=== PATIENT | male | born 1985 | race Hispanic/Latino ===

== ENCOUNTER 2018-09-22 09:52 | Emergency (ER) | payer OTHER ==
[2018-09-22 10:28] LABS: #Basophils 0.2 thou/uL (0.0-0.2); #Eosinphils 0.5 thou/uL (0.0-0.7); #Lymphocytes 2.5 thou/uL (1.20-3.40); #Monocytes 0.7 thou/uL (0.11-0.59); #Neutrophils 5.4 thou/uL (1.40-6.50); %Basophils 1.6 % (0.0-1.0); %Eosinophils 5.3 % (0.0-10.0); %Lymphocytes 27.4 % (21.0-51.0); %Monocytes 7.9 % (0.0-10.0); %Neutrophils 57.7 % (42.0-75.0); Hemoglobin 15.1 g/dL (14.0-18.0); Mean Corpuscular HGB CONC 33.3 g/dL (32.0-36.0); Mean Corpuscular Hemoglobin 30.9 pg (27.0-31.0); Mean Corpuscular Volume 92.9 fL (78.0-98.0); Mean Platelet Volume 5.6 fL (7.4-10.4); Platelet Count 322 thou/uL (130-400); RBC Distribution Width 11.3 % (11.5-14.5); Red Blood Cell (RBC) Count 4.89 mill/uL (4.70-6.10); White Blood Cell (WBC) Count 9.3 thou/uL (4.8-10.8)
[2018-09-22 10:40] LABS: ALT (SGPT) 48 U/L (8-55); AST (SGOT) 28 U/L (5-34); Albumin 4.2 g/dL (3.5-5.0); Alkaline Phosphatase 97 U/L (40-150); Anion Gap 11 mmol/L (10-20); BUN (Urea Nitrogen) 10 mg/dL (8.9-20.6); Bilirubin, Total 0.4 mg/dL (0.2-1.2); Calc. Creatinine Clearance 0 mL/min (70-130); Calcium 9.6 mg/dL (7.8-10.44); Carbon Dioxide 27 mmol/L (22-29); Chloride 103 mmol/L (98-107); Estimated GFR-MDRD Greater than 90; Globulin 3.1 g/dL (2.4-3.5); Glucose 94 mg/dL (70-105); Lipase 16 U/L (8-78); Potassium 3.9 mmol/L (3.5-5.1); Protein, Total 7.3 g/dL (6.0-8.3); Sodium 137 mmol/L (136-145)
[2018-09-22 10:55] LABS: Bilirubin Negative (Negative); Blood, Urine Negative (Negative); Clarity Clear (Clear); Glucose, Urine (Dipstick) Negative (Negative); Leukocyte Negative (Negative); Nitrite Negative (Negative); Protein, Urine (Dipstick) Negative (Neg-Trace); Specific Gravity, Urine 1.015 (1.005-1.030); Urobilinogen 0.2 mg/dL (0.2-1.0); pH, Urine 6.5 (5.0-9.0)
--- NOTE | 2018-09-22 13:27 | CT ---
CT ABDOMEN AND PELVIS: Date: 09/22/18 COMPARISON: 04/25/14. HISTORY: Abdominal pain and abdominal bloating. TECHNIQUE: Axial CT imaging at 5 mm intervals from lung bases through pubic symphysis with IV and oral contrast. Coronal reformatted imaging obtained. FINDINGS: The visualized lung bases are unremarkable. No free intraperitoneal air or fluid. The liver, spleen, gallbladder, pancreas, adrenal glands, and kidneys appear unremarkable. There is no evidence for bowel inflammatory change or bowel obstruction. The appendix appears unremar kable. There is a circumaortic left renal vein. No lymphadenopathy is noted within the abdomen or the pelvis . The osseous structures demonstrate no acute findings. IMPRESSION: No acute findings. POS: [facility]
== END 2018-09-22 12:51 | disposition home or self-care (01) ==
LOC: SCSER 09:52
DX: R10.9 Unspecified abdominal pain (principal); I10 Essential (primary) hypertension; Z79.899 Other long term (current) drug therapy
CPT/HCPCS: 36415; 74177; 80053; 81003; 83690; 85025; 96361; 96374; J2270

== ENCOUNTER 2018-11-22 10:13 | Emergency (ER) | payer OTHER | END 2018-11-22 10:48 | disposition home or self-care (01) | LOC: SCSER 10:13 | DX: J01.90 Acute sinusitis, unspecified (principal); F17.210 Nicotine dependence, cigarettes, uncomplicated; I10 Essential (primary) hypertension | CPT/HCPCS: 99282 ==

== ENCOUNTER 2018-12-09 11:15 | Emergency (ER) | payer OTHER ==
[2018-12-09] MEDS ORDERED: Lisinopril 10 MG TAB ONE (11:41)
[2018-12-09] MEDS ORDERED: cloNIDine 0.1mg/24 Hour PATCH ONE (11:41)
[2018-12-09] MEDS ORDERED: cloNIDine 0.1 MG TAB ONE (11:42)
== END 2018-12-09 12:11 | disposition home or self-care (01) ==
LOC: SCSER 11:15
DX: B35.6 Tinea cruris (principal); I10 Essential (primary) hypertension; F17.210 Nicotine dependence, cigarettes, uncomplicated; Z79.899 Other long term (current) drug therapy
CPT/HCPCS: 99282

== ENCOUNTER 2019-09-17 19:28 | Emergency (ER) | payer OTHER ==
[~2019-09-17 19:28] MED LIST: Iopamidol 370 76% 100 ML VIAL ONE
--- NOTE | 2019-09-17 20:58 | ULT ---
[facility]: 09/17/2019 COMPARISON:None available HISTORY:Right upper quadrant pain TECHNIQUE: [facility] FINDINGS:The pancreas appears grossly unremarkable, partially obscured by bowel gas. No focal liver lesion. The hepatic parenchyma is heterogeneous and echogenic, suggesting hepatic stea tosis. There is a hypoechoic lesion within the right lobe of the liver measuring 1.7 x 1.2 x 0.9 cm. No gallbladder wall thickening or pericholecystic fluid. No gallstones are noted. The common bile monae t measures 3 mm, within normal limits. The right kidney measures 11.2 cm in craniocaudal dimension and demonstrates no evidence for stone, h ydronephrosis, or mass. The account processor reports a negative Quinones's sign. IMPRESSION:No evidence for cholelithiasis, cholecystitis, or biliary dilatation. The hepatic parenchyma is echogenic, suggesting steatosis. There is a hypoechoic lesion within the ri ght lobe measuring up to 1.7 cm. It is uncertain whether this represents a focal area of fatty sparing or a true liver lesion. Recommend a follow-up MRI of the abdomen with and without contrast on a nonemergent basis CODE T
--- NOTE | 2019-09-17 21:29 | CT ---
CT abdomen and pelvis: 09/17/2019 COMPARISON: 09/22/2018 HISTORY: 2 day history of abdominal pain TECHNIQUE: Axial CT imaging at 5 mm intervals from the lung bases through the pubic symphysis with IV contrast. Coronal and sagittal reformatted imaging obtained. FINDINGS: Imaged lung bases are grossly unremarkable. No free intraperitoneal air or fluid is seen. The hepatic parenchyma is hypodense, suggesting steatosis. No discrete liver lesion is noted on this examination. However, there was a hypoechoic lesion noted on prior ultrasound, which should be further assessed with nonemergent follow-up abdominal MRI. The gallbladder is decompressed and not well assessed. The spleen, pancreas, adrenal glands, and kidn eys demonstrate no acute findings. The appendix appears unremarkable. There is no focal area of bowel inflammatory change and there is no evidence for bowel obstruction. T he vascular structures of the abdomen/pelvis appear patent. There is a circumaortic left renal vein. There is no abdominal or pelvic lymphadenopathy. No acute osseous abnormality. IMPRESSION: No acute findings. Incidental findings as detailed above.
== END 2019-09-17 22:37 | disposition home or self-care (01) ==
LOC: ERS 19:28
DX: R10.11 Right upper quadrant pain (principal); I10 Essential (primary) hypertension; Z87.891 Personal history of nicotine dependence; Z79.899 Other long term (current) drug therapy
CPT/HCPCS: 74177; 76705; Q9967

== ENCOUNTER 2023-12-30 12:57 | Inpatient (IN) | payer OTHER, SELFPAY ==
[2023-12-30 15:20] LABS: #Basophils 0.03 10x3/uL (0.0-0.2); %Basophils 0.4 % (0.0-1.0); %Lymphocytes 27.5 % (21.0-51.0); %Monocytes 8.2 % (0.0-10.0); %Neutrophils 59.4 % (42.0-75.0); Hematocrit 39.9 % (42.0-52.0); Hemoglobin 14.3 g/dL (14.0-18.0); Mean Corpuscular HGB CONC 35.8 g/dL (32.0-36.0); Mean Corpuscular Hemoglobin 32.6 pg (27.0-31.0); Mean Corpuscular Volume 90.9 fL (78.0-98.0); Mean Platelet Volume 8.1 fL (7.4-10.4); Platelet Count 351 10x3/uL (130-400); RBC Distribution Width 12.4 % (11.5-14.5); Red Blood Cell (RBC) Count 4.39 mill/uL (4.70-6.10)
[2023-12-30 15:33] LABS: ALT (SGPT) 35 U/L (8-55); AST (SGOT) 24 U/L (5-34); Alkaline Phosphatase 87 U/L (40-110); Anion Gap 13 mmol/L (10-20); BUN (Urea Nitrogen) 9 mg/dL (8.9-20.6); Bilirubin, Total 0.6 mg/dL (0.2-1.2); Calc. Creatinine Clearance 0 mL/min (70-130); Calcium 9.5 mg/dL (7.8-10.44); Carbon Dioxide 23 mmol/L (22-29); Chloride 107 mmol/L (98-107); Estimated GFR 99; Globulin 3.5 g/dL (2.4-3.5); Glucose 82 mg/dL (70-105); Potassium 4.3 mmol/L (3.5-5.1); Protein, Total 7.5 g/dL (6.0-8.3); Sodium 139 mmol/L (136-145)
[2023-12-30] MEDS ORDERED: hydrALAZINE 20 MG/ML VIAL SLOW IVP PRN (15:57)
[2023-12-30 16:04] LABS: Troponin I 0.012 ng/mL (< 0.028)
[2023-12-30] MEDS ORDERED: Aspirin Chewable 81 MG TAB ONE (16:09)
[2023-12-30] MEDS: Atorvastatin Calcium 40 MG TAB PO SCH (21:20)
[2023-12-30 21:38] VITALS: BMI 25.5
[2023-12-30] MEDS: Acetaminophen 325 MG TAB PO SCH (22:54)
[2023-12-31 04:53] LABS: Anion Gap 14 mmol/L (10-20); BUN (Urea Nitrogen) 13 mg/dL (8.9-20.6); Calc. Creatinine Clearance 92 mL/min (70-130); Carbon Dioxide 23 mmol/L (22-29); Cardiac Risk 4.1 (Less than 4.5); Chloride 104 mmol/L (98-107); Cholesterol 188 mg/dl (< 200 Desired); Estimated GFR 97; Glucose 107 mg/dL (70-105); HDL Cholesterol 46 mg/dL (>60 Neg Risk); LDL Cholesterol, Calculated 71 mg/dL; Potassium 3.6 mmol/L (3.5-5.1); Sodium 137 mmol/L (136-145); Triglycerides 355 mg/dL (Less than 150)
[2023-12-31 04:54] LABS: Hemoglobin A1c 5.2 % (4.0-6.0)
[2023-12-31 05:54] LABS: #Basophils 0.07 10x3/uL (0.0-0.2); %Basophils 0.8 % (0.0-1.0); %Eosinophils 6.4 % (0.0-10.0); %Monocytes 7.3 % (0.0-10.0); %Neutrophils 54.2 % (42.0-75.0); Hematocrit 38.9 % (42.0-52.0); Hemoglobin 13.7 g/dL (14.0-18.0); Mean Corpuscular HGB CONC 35.2 g/dL (32.0-36.0); Mean Corpuscular Hemoglobin 32.5 pg (27.0-31.0); Mean Corpuscular Volume 92.2 fL (78.0-98.0); Mean Platelet Volume 8.5 fL (7.4-10.4); Platelet Count 340 10x3/uL (130-400); RBC Distribution Width 12.6 % (11.5-14.5); Red Blood Cell (RBC) Count 4.22 mill/uL (4.70-6.10)
[2023-12-31] MEDS: Aspirin 81 mg Enteric Coated Tablet PO SCH (08:50)
[2023-12-31] MEDS: Enoxaparin 40 MG (0.4 mL) SYRINGE SC SCH (08:50)
[2023-12-31] MEDS: hydrALAZINE 20 MG/ML VIAL SLOW IVP PRN (15:24)
[2023-12-31 20:40] VITALS: BP 139/94; TEMP 98.5
[2024-01-01] MEDS ORDERED: Lisinopril 20 MG TAB PO SCH (09:00)
== END 2024-01-01 02:35 | disposition short-term general hospital (02) | DRG 66 ==
LOC: ERS 12:57 → ERHOLD 15:56 → 2SW 20:25
PROVIDERS: ADMIT Internal Medicine; ATTEND Internal Medicine
DX: I63.81 Other cerebral infarction due to occlusion or stenosis of small artery (principal); I10 Essential (primary) hypertension; R29.810 Facial weakness; R29.702 NIHSS score 2; I72.0 Aneurysm of carotid artery; H02.402 Unspecified ptosis of left eyelid; Z79.899 Other long term (current) drug therapy; Z87.891 Personal history of nicotine dependence
CPT/HCPCS: 36415; 36416; 70450; 70496; 70498; 70551; 80048; 80053; 80061; 83036; 84484; 85025; 85730; 86038; 86225; 93005; 93306; 93880; J0360; J1650